=== PATIENT | male | born 1950 | race Caucasian/White ===

== ENCOUNTER 2016-10-24 19:53 | Inpatient (IN) | payer MEDICARE, OTHER ==
[~2016-10-24 19:53] MED LIST: LORTAB 5-500 T1 EACH PO; NORCO 5/325 TAB1 TAB PO; OCUVITE TABLET1 EACH PO; PLAVIX75 MG PO
[2016-10-24] MEDS ORDERED: FLONASE ALLERG9.9 ML (20:32)
[2016-10-24 21:34] LABS: BASO % 0.1 % (0-2); EOS % 0.1 % (0-7); HCT-HEMATOCRIT 51.8 % (36.0-53.5); HGB-HEMOGLOBIN 17.7 gm/dl (13.5-17.0); IMMATURE GRANULOCYTES ABSOLUTE 0.04 tho/cmm (0-0.03); IMMATURE GRANULOCYTES PERCENT 0.4 % (0-0.3); MCH (MEAN CORPUSCULAR HGB) 29.3 pg (28.0-32.0); MCHC MEAN CORPUSCULAR HGB CONC 34.2 % (32.0-36.0); MCV (MEAN CELL VOLUME) 85.8 fl (82.0-96.0); MEAN PLATELET VOLUME 10.3 cmc (9.4-12.4); MONO % 12.3 % (0-12); MONOCYTE ABSOLUTE COUNT 1.1 tho/cmm (0.0-1.2); NEUTROPHIL ABSOLUTE COUNT 6.8 tho/cmm (1.6-8.0); NEUTROPHIL-AUTOMATED 6.8 tho/cmm (1.6-8.0); NEUTROPHILS % 76.1 % (40-80); PLATELET COUNT 80 tho/cmm (150-450); RED BLOOD COUNT 6.04 mil/cmm (4.40-5.70); RED CELL DISTRIBUTION WIDTH 13.2 % (12.4-16.4)
[2016-10-24 21:48] LABS: ALB/GLOB RATIO 0.9 (0.8-2.0); ALBUMIN 3.5 g/dl (3.5-5.0); ALKALINE PHOSPHATASE 59 U/L (33-138); ALT/SGPT 24 U/L (12-78); ANION GAP 13 mmol/L (0-20); AST/SGOT 17 U/L (10-40); BILIRUBIN,TOTAL 1.4 mg/dl (0.0-1.5); BLOOD UREA NITROGEN 15 mg/dl (6-24); CALCIUM 8.4 mg/dl (8.5-10.5); CARBON DIOXIDE-VENOUS 26 mmol/L (22-32); CHLORIDE 102 mmol/l (96-110); CREATININE 1.36 mg/dl (0.60-1.30); GLUCOSE 131 mg/dL (70-110); LIPASE 170 U/L (73-393); SODIUM 137 mmol/L (135-145); eGFR VALUE FOR BLACK 62 mL/Min
[2016-10-24 21:59] LABS: URINE BILIRUBIN NEGATIVE (NEG); URINE BLOOD MODERATE (NEG); URINE GLUCOSE (UA) NEGATIVE (NEG); URINE KETONE MODERATE (NEG); URINE LEUKOCYTE ESTERASE NEGATIVE (NEG); URINE NITRITE NEGATIVE (NEG); URINE PROTEIN MODERATE (NEG)
[2016-10-24 22:00] LABS: URINE APPEARANCE CLOUDY; URINE COLOR YELLOW
[2016-10-24 22:07] LABS: URINE AMORPHOUS 1+; URINE MUCUS 2+; URINE WBC RARE /[HPF] (0-5)
[2016-10-25 05:25] LABS: BASO % 0.1 % (0-2); EOS % 0.2 % (0-7); HCT-HEMATOCRIT 48.1 % (36.0-53.5); HGB-HEMOGLOBIN 16.5 gm/dl (13.5-17.0); IMMATURE GRANULOCYTES ABSOLUTE 0.03 tho/cmm (0-0.03); IMMATURE GRANULOCYTES PERCENT 0.3 % (0-0.3); LYMPH % 11.3 % (20-45); LYMPH ABSOLUTE COUNT 1.2 tho/cmm (0.8-4.5); MCH (MEAN CORPUSCULAR HGB) 29.3 pg (28.0-32.0); MCHC MEAN CORPUSCULAR HGB CONC 34.3 % (32.0-36.0); MCV (MEAN CELL VOLUME) 85.4 fl (82.0-96.0); MEAN PLATELET VOLUME 10.4 cmc (9.4-12.4); MONOCYTE ABSOLUTE COUNT 1.3 tho/cmm (0.0-1.2); NEUTROPHIL ABSOLUTE COUNT 8.1 tho/cmm (1.6-8.0); NEUTROPHIL-AUTOMATED 8.1 tho/cmm (1.6-8.0); NEUTROPHILS % 76.1 % (40-80); PLATELET COUNT 76 tho/cmm (150-450); RED BLOOD COUNT 5.63 mil/cmm (4.40-5.70); RED CELL DISTRIBUTION WIDTH 13.4 % (12.4-16.4); WHITE BLOOD COUNT 10.6 tho/cmm (4.0-10.0)
[2016-10-25 05:54] LABS: PROCALCITONIN 0.45 ng/ml (0.05-0.09)
[2016-10-25 06:22] LABS: ANION GAP 13 mmol/L (0-20); BLOOD UREA NITROGEN 13 mg/dl (6-24); CALCIUM 7.7 mg/dl (8.5-10.5); CARBON DIOXIDE-VENOUS 23 mmol/L (22-32); CHLORIDE 108 mmol/l (96-110); CREATININE 1.08 mg/dl (0.60-1.30); GLUCOSE 122 mg/dL (70-110); SODIUM 140 mmol/L (135-145); eGFR VALUE FOR BLACK 82 mL/Min
[2016-10-25 06:28] LABS: C-REACTIVE PROTEIN 10.8 mg/dl (0-0.9)
[2016-10-26 04:36] LABS: BASO % 0.2 % (0-2); EOS % 3.6 % (0-7); EOSINOPHIL ABSOLUTE COUNT 0.2 tho/cmm (0.0-0.7); HCT-HEMATOCRIT 47.4 % (36.0-53.5); HGB-HEMOGLOBIN 16.2 gm/dl (13.5-17.0); IMMATURE GRANULOCYTES ABSOLUTE 0.05 tho/cmm (0-0.03); IMMATURE GRANULOCYTES PERCENT 0.8 % (0-0.3); LYMPH % 23.5 % (20-45); LYMPH ABSOLUTE COUNT 1.4 tho/cmm (0.8-4.5); MCH (MEAN CORPUSCULAR HGB) 29.1 pg (28.0-32.0); MCHC MEAN CORPUSCULAR HGB CONC 34.2 % (32.0-36.0); MCV (MEAN CELL VOLUME) 85.1 fl (82.0-96.0); MEAN PLATELET VOLUME 10.7 cmc (9.4-12.4); MONOCYTE ABSOLUTE COUNT 0.9 tho/cmm (0.0-1.2); NEUTROPHIL ABSOLUTE COUNT 3.5 tho/cmm (1.6-8.0); NEUTROPHIL-AUTOMATED 3.5 tho/cmm (1.6-8.0); NEUTROPHILS % 56.9 % (40-80); PLATELET COUNT 81 tho/cmm (150-450); RED BLOOD COUNT 5.57 mil/cmm (4.40-5.70); RED CELL DISTRIBUTION WIDTH 13.3 % (12.4-16.4); WHITE BLOOD COUNT 6.1 tho/cmm (4.0-10.0)
[2016-10-26 05:02] LABS: CKMB 1.7 ng/ml (<3.6)
[2016-10-26 13:01] LABS: ANION GAP 14 mmol/L (0-20); BLOOD UREA NITROGEN 15 mg/dl (6-24); CALCIUM 8.3 mg/dl (8.5-10.5); CARBON DIOXIDE-VENOUS 25 mmol/L (22-32); CHLORIDE 104 mmol/l (96-110); CREATININE 1.15 mg/dl (0.60-1.30); GLUCOSE 100 mg/dL (70-110); POTASSIUM 3.9 mmol/L (3.7-5.1); SODIUM 139 mmol/L (135-145); eGFR VALUE FOR BLACK 76 mL/Min
[2016-10-26 13:10] LABS: CHOLESTEROL 150 mg/dl (120-200); HDL CHOLESTEROL 32 mg/dl (40-60); LDL CHOLESTEROL 73 mg/dl (0-99); VLDL 46 mg/dl (0-30)
[2016-10-26 13:23] LABS: TRIGLYCERIDES 228 mg/dl (<149)
[2016-10-27 05:43] LABS: BLOOD UREA NITROGEN 15 mg/dl (6-24); CREATININE 1.03 mg/dl (0.60-1.30); eGFR VALUE FOR BLACK 87 mL/Min
[2016-10-27] MEDS ORDERED: BRILINTA90 M1 PO (16:18)
[2016-10-27] MEDS ORDERED: ASPIRIN81 M1 PO (16:20)
[2016-10-27] MEDS ORDERED: NITROGLYCERIN0.4 M2 SL (16:20)
[2016-10-27] MEDS ORDERED: COREG3.125 M1 PO (16:21)
[2016-10-27] MEDS ORDERED: LIPITOR40 M1 PO (16:21)
== END 2016-10-27 17:06 | DRG 981 ==
LOC: EDMED 19:53 → EMR2 23:35 → 5WD 10-25 01:20 → PCUB 10-26 14:40
PROVIDERS: Emergency Medicine; Family Medicine; Internal Medicine Cardiovascular Disease; Physician Assistant Medical; Registered Nurse; ADMIT Hospitalist
PROC: 027034Z Dilation of Coronary Artery, One Artery with Drug-eluting Intraluminal Device, Percutaneous Approach (ICD-10-PCS; principal; 2016-10-26)
PROC: B216YZZ Fluoroscopy of Right and Left Heart using Other Contrast (ICD-10-PCS; 2016-10-26)
PROC: 4A023N7 Measurement of Cardiac Sampling and Pressure, Left Heart, Percutaneous Approach (ICD-10-PCS; 2016-10-26)
DX: K56.5 Intestinal adhesions [bands] with obstruction (postinfection) (principal); I21.4 Non-ST elevation (NSTEMI) myocardial infarction; D69.6 Thrombocytopenia, unspecified; E86.0 Dehydration; I25.10 Atherosclerotic heart disease of native coronary artery without angina pectoris; E78.5 Hyperlipidemia, unspecified; J32.9 Chronic sinusitis, unspecified; I10 Essential (primary) hypertension; G47.30 Sleep apnea, unspecified; E73.9 Lactose intolerance, unspecified
CPT/HCPCS: C1769; C1874; C1887; C1894; C8929; C9600-LC; J1335; J1644; J1650; J2250; J2270; J2405; J3010; J7030; Q9967